=== PATIENT | female | born 1950 | race African-American/Black ===

== ENCOUNTER 2017-04-05 21:33 | Inpatient (IN) | payer MEDICAID ==
[~2017-04-05] VITALS: Ht 180.3 cm; Wt 54.2 kg
[~2017-04-05 21:33] MED LIST: CYAN10005 PO; LISI-167 PO; MIRT30TA6 PO
[2017-04-05 23:24] LABS: BLOOD UREA NITROGEN 13 mg/dL (7-18)
[2017-04-05 23:59] LABS: DIFF TOTAL CELLS COUNTED 100 CELL DIFF
[2017-04-06] MEDS ORDERED: SODIUM CHLORIDE FLUSH 10ML SYR IVF ONE
[2017-04-06] MEDS ORDERED: SODIUM CHLORIDE 0.9% 1,000ML IVBOLUS ONE
[2017-04-06 00:44] LABS: VERIFY COUNTS? YES
[2017-04-06 01:06] LABS: SMUDGE CELLS 1+
[2017-04-06] MEDS ORDERED: ONDANSETRON 2MG/ML, 2ML ONE (01:15)
[2017-04-06] MEDS ORDERED: MORPHINE SULFATE 4 MG/ML, 1ML ONE (01:15)
[2017-04-06] MEDS ORDERED: ENALAPRILAT 1.25 MG/ML, 2ML IVPush PRN (01:30)
[2017-04-06] MEDS ORDERED: ONDANSETRON 2MG/ML, 2ML IVPush ONE (01:30)
[2017-04-06] MEDS ORDERED: ONDANSETRON 2MG/ML, 2ML IVPush PRN (01:30)
[2017-04-06] MEDS ORDERED: BISACODYL 10 MG SUPP PR PRN (01:30)
[2017-04-06] MEDS ORDERED: morphine SULFATE 10 MG/ML, 1ML IVPush ONE (01:30)
[2017-04-06] MEDS ORDERED: POLYETHYLENE GLYCOL 17 GM PACKET PO PRN (01:30)
[2017-04-06] MEDS ORDERED: LORazepam 2 MG/ML, 1ML IVPush PRN (01:30)
[2017-04-06] MEDS ORDERED: POTASSIUM CHLORIDE 40 MEQ in SODIUM CHLORIDE 0.9% 500 ML IV ONE (02:00)
[2017-04-06] MEDS ORDERED: CYANOCOBALAMIN 1,000 MCG TABLET PO SCH (02:00)
[2017-04-06 02:15] VITALS: BP 129/81
[2017-04-06] MEDS: SODIUM CHLORIDE 0.9% 1,000 ML IV SCH ×4 (02:45→21:55)
[2017-04-06] MEDS: morphine SULFATE 10 MG/ML, 1ML IVPush PRN ×3 (05:24→12:20)
[2017-04-06] MEDS: HEPARIN 5,000 UNITS/ML, 1ML SQ SCH ×3 (05:27→21:49)
[2017-04-06 07:04] LABS: ASPARTATE AMINO TRANSFERASE 166 U/L (15-37); BLOOD UREA NITROGEN 10 mg/dL (7-18)
[2017-04-06 07:22] LABS: DIFF TOTAL CELLS COUNTED 100 CELL DIFF
[2017-04-06 07:31] LABS: VERIFY COUNTS? YES
[2017-04-06 07:40] VITALS: BP 126/81
[2017-04-06] MEDS: FOLIC ACID 1 MG TABLET PO SCH (09:56)
[2017-04-06] MEDS: LISINOPRIL 10 MG TABLET PO SCH (09:56)
[2017-04-06] MEDS: MULTIVITAMIN 1 TABLET PO SCH (09:56)
[2017-04-06] MEDS: THIAMINE 100MG TABLET PO SCH (09:56)
[2017-04-06] MEDS: NICOTINE 7 MG/24 HR PATCH.TD24 TD SCH (09:57)
[2017-04-06] MEDS: MIRTAZAPINE 30 MG TAB.RAPDIS PO SCH (09:57)
[2017-04-06] MEDS: SENNA/DOCUSATE TABLET PO SCH (09:57)
[2017-04-06 14:54] VITALS: BP 138/87
[2017-04-06] MEDS: OXYcodone IR 5MG TABLET PO PRN ×2 (16:55→21:48)
[2017-04-06 19:14] VITALS: BP 129/81
[2017-04-06] MEDS: ACETAMINOPHEN 325 MG TABLET PO PRN (21:49)
[2017-04-07 01:24] VITALS: BP 122/78
[2017-04-07] MEDS: OXYcodone IR 5MG TABLET PO PRN ×5 (02:12→21:03)
[2017-04-07] MEDS: morphine SULFATE 10 MG/ML, 1ML IVPush PRN ×5 (05:15→23:58)
[2017-04-07] MEDS: HEPARIN 5,000 UNITS/ML, 1ML SQ SCH ×3 (05:15→21:04)
[2017-04-07] MEDS: SODIUM CHLORIDE 0.9% 1,000 ML IV SCH ×2 (05:23→13:21)
[2017-04-07 06:09] LABS: BLOOD UREA NITROGEN 13 mg/dL (7-18)
[2017-04-07 06:13] LABS: ASPARTATE AMINO TRANSFERASE 120 U/L (15-37)
[2017-04-07 06:23] LABS: DIFF TOTAL CELLS COUNTED 100 CELL DIFF
[2017-04-07 06:28] LABS: VERIFY COUNTS? YES
[2017-04-07 07:10] VITALS: BP 147/85
[2017-04-07] MEDS: THIAMINE 100MG TABLET PO SCH (08:35)
[2017-04-07] MEDS: MULTIVITAMIN 1 TABLET PO SCH (08:35)
[2017-04-07] MEDS: NICOTINE 7 MG/24 HR PATCH.TD24 TD SCH (08:35)
[2017-04-07] MEDS: SENNA/DOCUSATE TABLET PO SCH (08:35)
[2017-04-07] MEDS: FOLIC ACID 1 MG TABLET PO SCH (08:35)
[2017-04-07] MEDS: LISINOPRIL 10 MG TABLET PO SCH (08:35)
[2017-04-07] MEDS: MIRTAZAPINE 30 MG TAB.RAPDIS PO SCH (08:35)
[2017-04-07 13:09] VITALS: BP 167/101
[2017-04-07 13:59] VITALS: BP 148/88
[2017-04-07 20:20] VITALS: BP 158/89
[2017-04-07] MEDS: ACETAMINOPHEN 325 MG TABLET PO PRN (21:03)
[2017-04-08 02:06] VITALS: BP 151/94
[2017-04-08] MEDS: OXYcodone IR 5MG TABLET PO PRN ×5 (04:36→21:33)
[2017-04-08] MEDS: ACETAMINOPHEN 325 MG TABLET PO PRN (04:36)
[2017-04-08] MEDS: HEPARIN 5,000 UNITS/ML, 1ML SQ SCH ×3 (05:55→21:33)
[2017-04-08] MEDS: morphine SULFATE 10 MG/ML, 1ML IVPush PRN ×2 (06:00→20:24)
[2017-04-08 06:33] LABS: ASPARTATE AMINO TRANSFERASE 87 U/L (15-37); BLOOD UREA NITROGEN 8 mg/dL (7-18)
[2017-04-08 06:55] VITALS: BP 135/87
[2017-04-08] MEDS: MIRTAZAPINE 30 MG TAB.RAPDIS PO SCH (08:29)
[2017-04-08] MEDS: SENNA/DOCUSATE TABLET PO SCH (08:30)
[2017-04-08] MEDS: THIAMINE 100MG TABLET PO SCH (08:30)
[2017-04-08] MEDS: NICOTINE 7 MG/24 HR PATCH.TD24 TD SCH (08:30)
[2017-04-08] MEDS: LISINOPRIL 10 MG TABLET PO SCH (08:30)
[2017-04-08] MEDS: FOLIC ACID 1 MG TABLET PO SCH (08:30)
[2017-04-08] MEDS: MULTIVITAMIN 1 TABLET PO SCH (08:30)
[2017-04-08 13:19] VITALS: BP 156/91
[2017-04-08 20:04] VITALS: BP 159/87
[2017-04-09] MEDS: morphine SULFATE 10 MG/ML, 1ML IVPush PRN ×6 (01:48→21:55)
[2017-04-09] MEDS: OXYcodone IR 5MG TABLET PO PRN ×5 (01:49→23:38)
[2017-04-09 02:19] VITALS: BP 146/97
[2017-04-09] MEDS: HEPARIN 5,000 UNITS/ML, 1ML SQ SCH ×3 (05:28→21:52)
[2017-04-09] MEDS: MULTIVITAMIN 1 TABLET PO SCH (08:25)
[2017-04-09] MEDS: MIRTAZAPINE 30 MG TAB.RAPDIS PO SCH (08:27)
[2017-04-09] MEDS: THIAMINE 100MG TABLET PO SCH (08:28)
[2017-04-09] MEDS: FOLIC ACID 1 MG TABLET PO SCH (08:28)
[2017-04-09] MEDS: SENNA/DOCUSATE TABLET PO SCH (08:28)
[2017-04-09] MEDS: LISINOPRIL 10 MG TABLET PO SCH (08:29)
[2017-04-09 09:17] VITALS: BP 126/82
[2017-04-09] MEDS: NICOTINE 7 MG/24 HR PATCH.TD24 TD SCH (11:55)
[2017-04-09 13:33] VITALS: BP 155/97
[2017-04-09 20:00] VITALS: BP 158/88
[2017-04-10 01:36] VITALS: BP 126/81
[2017-04-10] MEDS: morphine SULFATE 10 MG/ML, 1ML IVPush PRN ×2 (02:17→09:58)
[2017-04-10] MEDS: OXYcodone IR 5MG TABLET PO PRN ×3 (04:58→21:14)
[2017-04-10] MEDS: HEPARIN 5,000 UNITS/ML, 1ML SQ SCH ×3 (04:59→21:14)
[2017-04-10 07:11] VITALS: BP 106/73
[2017-04-10] MEDS: SENNA/DOCUSATE TABLET PO SCH (09:58)
[2017-04-10] MEDS: FOLIC ACID 1 MG TABLET PO SCH (09:58)
[2017-04-10] MEDS: MULTIVITAMIN 1 TABLET PO SCH (09:58)
[2017-04-10] MEDS: MIRTAZAPINE 30 MG TAB.RAPDIS PO SCH (09:58)
[2017-04-10] MEDS: THIAMINE 100MG TABLET PO SCH (09:58)
[2017-04-10] MEDS: LISINOPRIL 10 MG TABLET PO SCH (09:58)
[2017-04-10] MEDS: NICOTINE 7 MG/24 HR PATCH.TD24 TD SCH (13:30)
[2017-04-10 14:25] VITALS: BP 136/82
[2017-04-10 20:23] VITALS: BP 127/77
[2017-04-11] MEDS: OXYcodone IR 5MG TABLET PO PRN ×5 (01:41→21:48)
[2017-04-11 03:35] VITALS: BP 144/96
[2017-04-11] MEDS: HEPARIN 5,000 UNITS/ML, 1ML SQ SCH ×3 (05:30→21:48)
[2017-04-11 06:59] VITALS: BP 132/89
[2017-04-11] MEDS: MIRTAZAPINE 30 MG TAB.RAPDIS PO SCH (10:28)
[2017-04-11] MEDS: FOLIC ACID 1 MG TABLET PO SCH (10:28)
[2017-04-11] MEDS: MULTIVITAMIN 1 TABLET PO SCH (10:28)
[2017-04-11] MEDS: THIAMINE 100MG TABLET PO SCH (10:28)
[2017-04-11] MEDS: SENNA/DOCUSATE TABLET PO SCH (10:28)
[2017-04-11] MEDS: LISINOPRIL 10 MG TABLET PO SCH (10:29)
[2017-04-11] MEDS: NICOTINE 7 MG/24 HR PATCH.TD24 TD SCH (12:36)
[2017-04-11 13:14] VITALS: BP 146/96
[2017-04-11] MEDS: morphine SULFATE 10 MG/ML, 1ML IVPush PRN (15:53)
[2017-04-11 19:22] VITALS: BP 154/93
[2017-04-12] MEDS: OXYcodone IR 5MG TABLET PO PRN ×5 (01:56→20:54)
[2017-04-12 02:32] VITALS: BP 155/94
[2017-04-12] MEDS: HEPARIN 5,000 UNITS/ML, 1ML SQ SCH ×3 (06:34→20:54)
[2017-04-12 08:49] VITALS: BP 149/96
[2017-04-12] MEDS: MULTIVITAMIN 1 TABLET PO SCH (09:02)
[2017-04-12] MEDS: THIAMINE 100MG TABLET PO SCH (09:02)
[2017-04-12] MEDS: MIRTAZAPINE 30 MG TAB.RAPDIS PO SCH (09:02)
[2017-04-12] MEDS: LISINOPRIL 10 MG TABLET PO SCH (09:02)
[2017-04-12] MEDS: FOLIC ACID 1 MG TABLET PO SCH (09:02)
[2017-04-12] MEDS: SENNA/DOCUSATE TABLET PO SCH (09:02)
[2017-04-12] MEDS: NICOTINE 7 MG/24 HR PATCH.TD24 TD SCH (11:47)
[2017-04-12 15:22] VITALS: BP 157/114
[2017-04-12 15:30] VITALS: BP 155/98
[2017-04-13 02:00] VITALS: BP 166/115
[2017-04-13] MEDS: OXYcodone IR 5MG TABLET PO PRN ×5 (02:02→23:05)
[2017-04-13 02:55] VITALS: BP 152/89
[2017-04-13] MEDS: HEPARIN 5,000 UNITS/ML, 1ML SQ SCH ×3 (06:18→20:47)
[2017-04-13 08:56] VITALS: BP 156/98
[2017-04-13] MEDS: LISINOPRIL 10 MG TABLET PO SCH (08:58)
[2017-04-13] MEDS: MIRTAZAPINE 30 MG TAB.RAPDIS PO SCH (08:58)
[2017-04-13] MEDS: MULTIVITAMIN 1 TABLET PO SCH (08:58)
[2017-04-13] MEDS: FOLIC ACID 1 MG TABLET PO SCH (08:58)
[2017-04-13] MEDS: SENNA/DOCUSATE TABLET PO SCH (08:58)
[2017-04-13] MEDS: THIAMINE 100MG TABLET PO SCH (08:58)
[2017-04-13] MEDS: NICOTINE 7 MG/24 HR PATCH.TD24 TD SCH (11:44)
[2017-04-13 16:31] VITALS: BP 150/109
[2017-04-13 17:40] VITALS: BP 153/99
[2017-04-13 20:00] VITALS: BP 139/102
[2017-04-13] MEDS: LISINOPRIL 20 MG TABLET PO SCH (20:46)
[2017-04-14] VITALS (8 sets, daily range): BP systolic 147–175; BP diastolic 98–113
[2017-04-14] MEDS: OXYcodone IR 5MG TABLET PO PRN ×4 (05:34→20:15)
[2017-04-14] MEDS: HEPARIN 5,000 UNITS/ML, 1ML SQ SCH ×3 (05:34→21:37)
[2017-04-14] MEDS: MIRTAZAPINE 30 MG TAB.RAPDIS PO SCH (08:09)
[2017-04-14] MEDS: MULTIVITAMIN 1 TABLET PO SCH (08:09)
[2017-04-14] MEDS: THIAMINE 100MG TABLET PO SCH (08:09)
[2017-04-14] MEDS: FOLIC ACID 1 MG TABLET PO SCH (08:09)
[2017-04-14] MEDS: SENNA/DOCUSATE TABLET PO SCH (08:09)
[2017-04-14] MEDS: LISINOPRIL 20 MG TABLET PO SCH ×3 (08:09→21:38)
[2017-04-14] MEDS: NICOTINE 7 MG/24 HR PATCH.TD24 TD SCH (12:11)
[2017-04-14] MEDS: METOPROLOL TARTRATE 50 MG TABLET PO SCH ×2 (16:14→21:38)
[2017-04-15] MEDS: OXYcodone IR 5MG TABLET PO PRN ×5 (01:23→20:41)
[2017-04-15 02:39] VITALS: BP 165/96
[2017-04-15] MEDS: HEPARIN 5,000 UNITS/ML, 1ML SQ SCH ×3 (05:36→21:27)
[2017-04-15 07:00] VITALS: BP 166/103
[2017-04-15] MEDS: THIAMINE 100MG TABLET PO SCH (08:55)
[2017-04-15] MEDS: SENNA/DOCUSATE TABLET PO SCH (08:55)
[2017-04-15] MEDS: MIRTAZAPINE 30 MG TAB.RAPDIS PO SCH (08:56)
[2017-04-15] MEDS: LISINOPRIL 20 MG TABLET PO SCH ×2 (08:56→20:42)
[2017-04-15] MEDS: METOPROLOL TARTRATE 50 MG TABLET PO SCH ×2 (08:56→20:43)
[2017-04-15] MEDS: FOLIC ACID 1 MG TABLET PO SCH (08:56)
[2017-04-15] MEDS: MULTIVITAMIN 1 TABLET PO SCH (08:56)
[2017-04-15] MEDS: NICOTINE 7 MG/24 HR PATCH.TD24 TD SCH (12:29)
[2017-04-15 15:35] VITALS: BP 128/92
[2017-04-15 19:36] VITALS: BP 136/88
[2017-04-15 20:44] VITALS: BP 144/88
[2017-04-16] VITALS (7 sets, daily range): BP systolic 144–158; BP diastolic 91–102
[2017-04-16] MEDS: OXYcodone IR 5MG TABLET PO PRN ×5 (00:54→20:57)
[2017-04-16] MEDS: HEPARIN 5,000 UNITS/ML, 1ML SQ SCH ×3 (05:58→22:00)
[2017-04-16] MEDS: FOLIC ACID 1 MG TABLET PO SCH (09:20)
[2017-04-16] MEDS: MULTIVITAMIN 1 TABLET PO SCH (09:21)
[2017-04-16] MEDS: MIRTAZAPINE 30 MG TAB.RAPDIS PO SCH (09:21)
[2017-04-16] MEDS: SENNA/DOCUSATE TABLET PO SCH (09:21)
[2017-04-16] MEDS: LISINOPRIL 20 MG TABLET PO SCH ×2 (09:21→20:54)
[2017-04-16] MEDS: METOPROLOL TARTRATE 50 MG TABLET PO SCH ×2 (09:21→20:54)
[2017-04-16] MEDS: THIAMINE 100MG TABLET PO SCH (09:22)
[2017-04-16] MEDS: NICOTINE 7 MG/24 HR PATCH.TD24 TD SCH (15:03)
[2017-04-17 01:32] VITALS: BP 168/97
[2017-04-17] MEDS: OXYcodone IR 5MG TABLET PO PRN ×4 (04:25→21:53)
[2017-04-17] MEDS: HEPARIN 5,000 UNITS/ML, 1ML SQ SCH ×3 (06:19→21:53)
[2017-04-17 08:32] VITALS: BP 161/96
[2017-04-17] MEDS: SENNA/DOCUSATE TABLET PO SCH (08:36)
[2017-04-17] MEDS: FOLIC ACID 1 MG TABLET PO SCH (08:36)
[2017-04-17] MEDS: LISINOPRIL 20 MG TABLET PO SCH ×2 (08:36→21:53)
[2017-04-17] MEDS: METOPROLOL TARTRATE 50 MG TABLET PO SCH ×2 (08:36→21:53)
[2017-04-17] MEDS: THIAMINE 100MG TABLET PO SCH (08:36)
[2017-04-17] MEDS: MULTIVITAMIN 1 TABLET PO SCH (08:37)
[2017-04-17] MEDS: MIRTAZAPINE 30 MG TAB.RAPDIS PO SCH (08:38)
[2017-04-17] MEDS: NICOTINE 7 MG/24 HR PATCH.TD24 TD SCH (12:36)
[2017-04-17 15:02] VITALS: BP 153/105
[2017-04-17 19:43] VITALS: BP 139/103
[2017-04-18] MEDS: OXYcodone IR 5MG TABLET PO PRN ×4 (02:00→22:19)
[2017-04-18 02:12] VITALS: BP 165/99
[2017-04-18] MEDS: HEPARIN 5,000 UNITS/ML, 1ML SQ SCH ×3 (06:39→22:19)
[2017-04-18 06:40] VITALS: BP 165/106
[2017-04-18] MEDS: SENNA/DOCUSATE TABLET PO SCH (10:28)
[2017-04-18] MEDS: THIAMINE 100MG TABLET PO SCH (10:28)
[2017-04-18] MEDS: METOPROLOL TARTRATE 50 MG TABLET PO SCH ×2 (10:29→21:00)
[2017-04-18] MEDS: FOLIC ACID 1 MG TABLET PO SCH (10:29)
[2017-04-18] MEDS: MULTIVITAMIN 1 TABLET PO SCH (10:29)
[2017-04-18] MEDS: LISINOPRIL 20 MG TABLET PO SCH ×2 (10:29→22:18)
[2017-04-18] MEDS: MIRTAZAPINE 30 MG TAB.RAPDIS PO SCH (10:29)
[2017-04-18] MEDS: NICOTINE 7 MG/24 HR PATCH.TD24 TD SCH (12:26)
[2017-04-18 14:46] VITALS: BP 161/89
[2017-04-18 20:58] VITALS: BP 140/94
[2017-04-19 02:56] VITALS: BP 152/91
[2017-04-19] MEDS: OXYcodone IR 5MG TABLET PO PRN ×4 (03:32→21:34)
[2017-04-19] MEDS: HEPARIN 5,000 UNITS/ML, 1ML SQ SCH ×3 (06:20→21:35)
[2017-04-19 07:15] VITALS: BP 136/84
[2017-04-19] MEDS: THIAMINE 100MG TABLET PO SCH (09:08)
[2017-04-19] MEDS: LISINOPRIL 20 MG TABLET PO SCH ×2 (09:08→21:35)
[2017-04-19] MEDS: MIRTAZAPINE 30 MG TAB.RAPDIS PO SCH (09:08)
[2017-04-19] MEDS: MULTIVITAMIN 1 TABLET PO SCH (09:08)
[2017-04-19] MEDS: SENNA/DOCUSATE TABLET PO SCH (09:08)
[2017-04-19] MEDS: FOLIC ACID 1 MG TABLET PO SCH (09:09)
[2017-04-19] MEDS: METOPROLOL TARTRATE 50 MG TABLET PO SCH ×2 (09:09→21:34)
[2017-04-19] MEDS: NICOTINE 7 MG/24 HR PATCH.TD24 TD SCH (12:10)
[2017-04-19 13:30] VITALS: BP 164/110
[2017-04-19 15:19] VITALS: BP 134/77
[2017-04-19 18:46] VITALS: BP 139/95
[2017-04-20 02:19] VITALS: BP 138/100
[2017-04-20] MEDS: HEPARIN 5,000 UNITS/ML, 1ML SQ SCH ×3 (04:36→21:48)
[2017-04-20] MEDS: OXYcodone IR 5MG TABLET PO PRN ×4 (04:37→21:49)
[2017-04-20 07:31] VITALS: BP 160/103
[2017-04-20] MEDS: SENNA/DOCUSATE TABLET PO SCH (08:15)
[2017-04-20] MEDS: MIRTAZAPINE 30 MG TAB.RAPDIS PO SCH (08:15)
[2017-04-20] MEDS: METOPROLOL TARTRATE 50 MG TABLET PO SCH ×2 (08:15→21:49)
[2017-04-20] MEDS: MULTIVITAMIN 1 TABLET PO SCH (08:15)
[2017-04-20] MEDS: FOLIC ACID 1 MG TABLET PO SCH (08:15)
[2017-04-20] MEDS: THIAMINE 100MG TABLET PO SCH (08:15)
[2017-04-20] MEDS: LISINOPRIL 20 MG TABLET PO SCH ×2 (08:15→21:49)
[2017-04-20 09:32] VITALS: BP 140/87
[2017-04-20 12:57] VITALS: BP 141/83
[2017-04-20] MEDS: NICOTINE 7 MG/24 HR PATCH.TD24 TD SCH (13:34)
[2017-04-20 18:59] VITALS: BP 131/86
[2017-04-21] MEDS: OXYcodone IR 5MG TABLET PO PRN ×3 (01:55→19:20)
[2017-04-21 02:32] VITALS: BP 132/91
[2017-04-21] MEDS: HEPARIN 5,000 UNITS/ML, 1ML SQ SCH ×2 (06:07→14:29)
[2017-04-21 07:14] VITALS: BP 115/77
[2017-04-21] MEDS: LISINOPRIL 20 MG TABLET PO SCH (09:08)
[2017-04-21] MEDS: METOPROLOL TARTRATE 50 MG TABLET PO SCH (09:09)
[2017-04-21] MEDS: FOLIC ACID 1 MG TABLET PO SCH (09:10)
[2017-04-21] MEDS: MULTIVITAMIN 1 TABLET PO SCH (09:10)
[2017-04-21] MEDS: THIAMINE 100MG TABLET PO SCH (09:10)
[2017-04-21] MEDS: MIRTAZAPINE 30 MG TAB.RAPDIS PO SCH (09:10)
[2017-04-21] MEDS: SENNA/DOCUSATE TABLET PO SCH (09:11)
[2017-04-21] MEDS: NICOTINE 7 MG/24 HR PATCH.TD24 TD SCH (12:34)
[2017-04-21 12:37] VITALS: BP 150/85
[2017-04-21 19:35] VITALS: BP 155/81
[2017-04-21 23:59] VITALS: BP 140/88
[2017-04-22] MEDS: METOPROLOL TARTRATE 50 MG TABLET PO SCH ×3 (00:01→21:02)
[2017-04-22] MEDS: HEPARIN 5,000 UNITS/ML, 1ML SQ SCH ×3 (00:01→16:51)
[2017-04-22] MEDS: LISINOPRIL 20 MG TABLET PO SCH ×3 (00:01→21:02)
[2017-04-22] MEDS: OXYcodone IR 5MG TABLET PO PRN ×4 (00:02→21:02)
[2017-04-22 01:58] VITALS: BP 145/96
[2017-04-22 07:51] VITALS: BP 146/81
[2017-04-22] MEDS: FOLIC ACID 1 MG TABLET PO SCH (07:56)
[2017-04-22] MEDS: MULTIVITAMIN 1 TABLET PO SCH (07:56)
[2017-04-22] MEDS: THIAMINE 100MG TABLET PO SCH (07:57)
[2017-04-22] MEDS: MIRTAZAPINE 30 MG TAB.RAPDIS PO SCH (07:57)
[2017-04-22] MEDS: SENNA/DOCUSATE TABLET PO SCH (07:57)
[2017-04-22] MEDS: NICOTINE 7 MG/24 HR PATCH.TD24 TD SCH (12:18)
[2017-04-22 14:09] VITALS: BP 135/99
[2017-04-22 20:00] VITALS: BP 157/91
[2017-04-23] MEDS: OXYcodone IR 5MG TABLET PO PRN ×3 (00:48→08:46)
[2017-04-23] MEDS: HEPARIN 5,000 UNITS/ML, 1ML SQ SCH ×2 (00:48→08:15)
[2017-04-23 03:38] VITALS: BP 161/87
[2017-04-23] MEDS: METOPROLOL TARTRATE 50 MG TABLET PO SCH (04:44)
[2017-04-23 08:12] VITALS: BP 148/96
[2017-04-23] MEDS: LISINOPRIL 20 MG TABLET PO SCH (08:15)
[2017-04-23] MEDS: MULTIVITAMIN 1 TABLET PO SCH (08:15)
[2017-04-23] MEDS: FOLIC ACID 1 MG TABLET PO SCH (08:15)
[2017-04-23] MEDS: SENNA/DOCUSATE TABLET PO SCH (08:16)
[2017-04-23] MEDS: THIAMINE 100MG TABLET PO SCH (08:16)
[2017-04-23] MEDS: MIRTAZAPINE 30 MG TAB.RAPDIS PO SCH (08:16)
[2017-04-23] MEDS ORDERED: POLY17PO5 PO (10:54)
[2017-04-23] MEDS ORDERED: TRAM50TA2 PO (10:54)
[2017-04-23] MEDS ORDERED: OXYC5TAB3 PO (10:54)
[2017-04-23] MEDS ORDERED: THIA100T6 PO (10:54)
[2017-04-23] MEDS ORDERED: MULT1TAB60 PO (10:54)
[2017-04-23] MEDS ORDERED: LISI-170 PO (10:54)
[2017-04-23] MEDS ORDERED: METO50TA82 PO (10:54)
[2017-04-23] MEDS ORDERED: NICO1PAT10 TD (10:54)
[2017-04-23] MEDS ORDERED: FOLI-17 PO (10:54)
[2017-04-23] MEDS: NICOTINE 7 MG/24 HR PATCH.TD24 TD SCH (12:00)
[2017-04-23] MEDS ORDERED: METOPROLOL TARTRATE 25 MG TABLET PO SCH (21:00)
== END 2017-04-23 12:35 | disposition home or self-care (01) | DRG 562 ==
LOC: ED 23:17 → EDIP 04-06 01:19 → 4NOR 04-06 02:00 → DCLOUNGE 04-23 12:05
PROVIDERS: ADMIT Internal Medicine
PROC: 2W3AX3Z Immobilization of Right Upper Arm using Brace (ICD-10-PCS; principal; 2017-04-09)
DX: S42.201A Unspecified fracture of upper end of right humerus, initial encounter for closed fracture (principal); E43 Unspecified severe protein-calorie malnutrition; E87.1 Hypo-osmolality and hyponatremia; Z68.1 Body mass index [BMI] 19.9 or less, adult; D61.818 Other pancytopenia; F10.229 Alcohol dependence with intoxication, unspecified; I10 Essential (primary) hypertension; E87.6 Hypokalemia; D32.0 Benign neoplasm of cerebral meninges; F17.210 Nicotine dependence, cigarettes, uncomplicated; F32.9 Major depressive disorder, single episode, unspecified; E53.8 Deficiency of other specified B group vitamins; D47.3 Essential (hemorrhagic) thrombocythemia; K70.10 Alcoholic hepatitis without ascites; W18.39XA Other fall on same level, initial encounter; Y93.89 Activity, other specified; Y92.89 Other specified places as the place of occurrence of the external cause; Z82.49 Family history of ischemic heart disease and other diseases of the circulatory system; Y99.8 Other external cause status
CPT/HCPCS: 36415; 70450; 72125; 80048; 80053; 80061; 80307; 81003; 82306; 82607; 83036; 83735; 84439; 84443; 85025; 96361; 96374; 96375; J1644; J2405; J3480; J2270; J7030; J7040

== ENCOUNTER 2017-05-21 17:05 | Emergency (ER) | payer MEDICAID, MEDICARE ==
[~2017-05-21] VITALS: Ht 182.9 cm; Wt 65.0 kg
[~2017-05-21 17:05] MED LIST changes: +FOLI-17 PO; +LISI-170 PO; +METO50TA82 PO; +MULT1TAB60 PO; +NICO1PAT10 TD; +OXYC5TAB3 PO; +POLY17PO5 PO; +THIA100T6 PO; +TRAM50TA2 PO
[2017-05-21] MEDS ORDERED: HYDROmorphone 1 MG/ML, 1ML IM ONE (17:30)
[2017-05-21] MEDS ORDERED: HYDROmorphone 1 MG/ML, 1ML ONE (18:02)
[2017-05-21 19:45] VITALS: BP 163/109
== END 2017-05-21 19:52 | disposition home or self-care (01) ==
LOC: ED 17:56
DX: S42.201A Unspecified fracture of upper end of right humerus, initial encounter for closed fracture (principal); S82.65XA Nondisplaced fracture of lateral malleolus of left fibula, initial encounter for closed fracture; I10 Essential (primary) hypertension; W01.0XXA Fall on same level from slipping, tripping and stumbling without subsequent striking against object, initial encounter; Y93.89 Activity, other specified; Y99.8 Other external cause status; Y92.89 Other specified places as the place of occurrence of the external cause
CPT/HCPCS: 73030; 73060; 73610; 96372; 99284; J1170